=== PATIENT | female | born 2000 | race Caucasian/White ===

== ENCOUNTER → 2021-04-27 | Outpatient (CLI) | payer SELFPAY | PROVIDERS: Referring Provider Internal Medicine; Visit Provider Internal Medicine | DX: Z23 Encounter for immunization (principal) | CPT/HCPCS: 90471; 90686 ==

== ENCOUNTER → 2021-06-08 08:09 | Outpatient (CLI) | payer OTHER, SELFPAY ==
[2021-06-08] MEDS: COVID-19 VACC #3, MRNA(MOD) 50 MCG/0.25 ML VIAL IM (08:19)
== END ==
PROVIDERS: Visit Provider Internal Medicine
DX: Z23 Encounter for immunization (principal)
CPT/HCPCS: 0013A; 91301

== ENCOUNTER 2022-08-19 14:46 | Emergency (ER) | payer OTHER, SELFPAY ==
[2022-08-19 14:57] VITALS: BP 131/94; PULSE 112; RESP 18; TEMP 36.7; O2SAT 99; BMI 21.9
[2022-08-19 15:53] LABS: Add Manual Diff / Slide Review NO; Basophils Absolute Auto 0 /uL (0-100); Basophils Percent Auto 0.2 % (0-2); Eosinophils Absolute Auto 0 /uL (0-450); Hematocrit 41.8 % (36-46); Hemoglobin 14.3 g/dL (12.0-16.0); Lymphocytes Absolute Auto 1400 /uL (1100-4500); Lymphocytes Percent Auto 14.5 % (25-40); Mean Corpuscular HGB Conc 34.3 % (30-36); Mean Corpuscular Hemoglobin 30.8 PG (26-34); Monocytes Absolute Auto 700 /uL (0-900); Monocytes Percent Auto 7.1 % (3-14); Neutrophils Absolute Auto 7400 /uL (1500-7000); Neutrophils Percent Auto 78.2 % (50-75); Platelet Count 269 X10^3/uL (150-400); Red Blood Cell Count 4.65 X10^6/uL (4.0-5.2); Red Cell Distribution Width 12.2 % (11.6-14.8); White Blood Cell Count 9.5 X10^3/uL (4.5-11.0)
[2022-08-19 15:59] LABS: Acetaminophen < 10 ug/mL (10-30); Alanine Aminotransferase 16 IU/L (<35); Albumin 4.8 g/dL (3.5-5.0); Albumin Globulin Ratio 1.4 (1.0-2.8); Alkaline Phosphatase 68 U/L (38-126); Aspartate Aminotransferase 27 IU/L (14-36); BUN Creatinine Ratio 20.3 (6-22); Bilirubin Total 0.6 mg/dL (0.2-1.3); Blood Urea Nitrogen 13 mg/dL (7-17); Calcium 9.2 mg/dL (8.4-10.2); Carbon Dioxide 27 mmol/L (22-32); Chloride 101 mmol/L (98-107); Estimated Glomerular Filt Rate > 60 mL/min (>60); Ethanol (ETOH) < 10 mg/dL; Globulin 3.4 g/dL (1.7-4.1); Glucose 97 mg/dL (70-100); HEMOLYSIS < 15 (0-50); Potassium 3.9 mmol/L (3.4-5.1); Salicylate < 1.0 mg/dL (<20); Sodium 140 mmol/L (137-145); Total Protein 8.2 g/dL (6.3-8.2)
[2022-08-19 16:18] LABS: Free T4, Direct Thyroxine 1.37 ng/dL (0.78-2.19)
[2022-08-19 16:31] LABS: Thyroid Stimulating Hormone 0.943 uIU/mL (0.47-4.68)
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
--- NOTE | 2022-08-19 16:53 | PC.NURSE ---
Triage completed by this RN. Entered inadvertantly under other RN. Story deferred to primary RN due to continuity of care and privacy.
[2022-08-19 17:13] LABS: UR Morphine/Opiate cutoff 300 Negative (Negative); Ur Creatinine Normal (Normal); Ur Specific Gravity Normal (Normal); Urine Amphetamines Negative (Negative); Urine Barbiturates Negative (Negative); Urine Benzodiazepines Negative (Negative); Urine Cocaine Negative (Negative); Urine MDMA Negative (Negative); Urine Methadone Negative (Negative); Urine Methamphetamines Negative (Negative); Urine Oxycodone Negative (Negative); Urine Phencyclidine Negative (Negative); Urine Tetrahydrocannabinol Positive (Negative); Urine Tricyclic Antidepressant Negative (Negative); Urine pH Normal (Normal)
[2022-08-19 17:18] LABS: Bacteria Urine Few (2-10); RBC Urine 1-5/HPF (0-5/HPF); WBC Urine 5-10/HPF (0-5/HPF)
[2022-08-19 17:19] LABS: Culture Indicated Urine Specimen Cultured
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
== END 2022-08-19 18:18 | disposition home or self-care (01) ==
PROVIDERS: Emergency Provider Emergency Medicine
DX: F41.9 Anxiety disorder, unspecified (principal)
CPT/HCPCS: 36415; 80053; 80305; 80320; 80329; 81003; 81015; 81025; 84439; 84443; 85025; 87086; 99284; G0480

== ENCOUNTER 2022-08-23 09:03 | Emergency (ER) | payer OTHER, SELFPAY ==
[2022-08-23 09:05] VITALS: BP 130/88; PULSE 84; RESP 19; TEMP 37.1; O2SAT 100
[2022-08-23] MEDS: LORazepam 0.5 MG TABLET 1 MG PO (09:30)
--- NOTE | 2022-08-23 09:31 | PC.NURSE ---
pt's (they are and live in different residences) brought pt in to er. reports she is just very paranoid, she is seeing messages in the tv and on social media. her sister contacted me because [facility] and left all her belongings and asked a stranger for a ride home. her mom contacted me because a stranger called her and said she (patient) was running around in street calling out for help. today he reports she called him crying for help and he said he needed to check in at work first, that was at 7 am and he was with her by 0800 am and she said shed been needing help for hours reports pt was recently at [facility] 07/24 and sent to [facility] but left [facility], she reported to him that they didnt treat here well and were changing her nametags and other things. tearful at triage. Gerald Leandra [phone] will return at 1100 to speak with biomedical engineer, he is running home now to check on dogs.
--- NOTE | 2022-08-23 09:41 | ED_ITS ---
HPI - General Adult General Chief complaint: Psychiatric Symptoms Stated complaint: mental distress Time Seen by Provider: 08/23/22 09:15 Source: patient Mode of arrival: Ambulatory Limitations: no limitations History of Present Illness HPI narrative: Patient is a 22-year-old female. Approximately 1 month ago spent 2-1/2 days had [facility]. She stated that she left against medical advice. The reasons were as that she stated that she would asked for a female doctor and they did not have 1 but that is all that she mentioned about this. They did not discharge her with any medications. She is on trazodone and hydroxyzine to help with sleep. She is here voluntarily. Over the past 24 hours she is had some significant issues. She is very overwhelmed with life events. Last evening they [place] car and phone [place]. She was eventually located. She then was walking down the street asking for a ride to come to the emergency department. She states that ?I just do not know what to do? expressed the nursing staff that she was not suicidal. There is no signs of trauma. Related Data Previous Rx's Medication Instructions Recorded trazodone 50 mg tablet 25 mg PO .qhs PRN insomnia #7 tabs 08/19/22 Allergies Allergy/AdvReac Type Severity Reaction Status Date / Time No Known Drug Allergies Allergy Verified 08/23/22 09:44 Review of Systems Review of Systems ROS Unobtainable: All systems reviewed & are unremarkable except as noted in HPI and below Patient History Social History Smoking Status: Never smoker Smoking Status: Never smoker Substance Use Type: does not use Exam Initial Vital Signs Initial Vital Signs: Vital Signs Temperature 98.8 F 08/23/22 09:05 Pulse Rate 84 08/23/22 09:05 Respiratory Rate 19 08/23/22 09:05 Blood Pressure 130/88 08/23/22 09:05 Pulse Oximetry 100 08/23/22 09:05 Oxygen Delivery Method 08/23/22 09:05 HENMT Head: normal to inspection and normocephalic Resp Effort & Inspection: normal respiratory effort Cardio Rate: regular rate Skin General: no rashes or lesions noted Neuro General: patient alert, patient awake and moves all extremities Gait: normal gait Psych Other: Patient is obviously anxious and is crying. Is tangential and short with her answers. She is not aggressive. Denies suicidal ideation. Course Orders Ordered: ED Orders 08/23/22 09:24 Ictotest Urine Stat Urinalysis and Microscopic Stat Urine Culture Stat 08/23/22 09:45 Consult to MOBILE MANAGER - Insurance Underwriting Assistant Stat 08/23/22 09:48 COVID19 -Nasal RAPID/Pre-Proc Stat 08/23/22 09:58 Acetaminophen Stat Complete Blood Count AUTO DIFF Stat Comprehensive Metabolic Panel Stat Ethanol (ETOH) Stat Salicylate Stat Thyroid Stimulating Hormone Stat 08/23/22 13:50 Test Urine Stat Urinalysis and Microscopic Stat Urine Drug Screen, Rapid Stat Discontinued Medications Acetaminophen (Acetaminophen 325 Mg Tablet) 650 mg PO NOW ONE Stop: 08/23/22 10:35 Last Admin: 08/23/22 10:37 Dose: 650 mg Documented By: QUIN Lorazepam (Lorazepam 0.5 Mg Tablet) 1 mg PO NOW ONE Stop: 08/23/22 09:16 Last Admin: 08/23/22 09:30 Dose: 1 mg Documented By: QUIN Vital Signs Vital signs: Vital Signs - 8 hr 08/23/22 14:55 Pulse Rate 88 Blood Pressure 119/75 Pulse Oximetry 100 Oxygen Delivery Method Room Air Medical Decision Making Medical Records Medical records reviewed: Yes I reviewed the patient's medical records. Lab Data Lab results reviewed: Yes I reviewed the patient's lab results. 08/23/22 09:58 08/23/22 09:58 Labs: Lab Results 08/23/22 08/23/22 08/23/22 Range/Units 09:24 09:24 09:48 WBC (4.5-11.0) X10^3/uL RBC (4.0-5.2) X10^6/uL Hgb (12.0-16.0) g/dL Hct (36-46) % MCV (80-100) fL MCH (26-34) PG MCHC (30-36) % RDW (11.6-14.8) % Plt Count (150-400) X10^3/uL Neut % (Auto) (50-75) % Lymph % (Auto) (25-40) % [place] % (Auto) (3-14) % Eos % (Auto) (2-4) % Baso % (Auto) (0-2) % Neut # (Auto) (2656-5188) /uL Lymph # (Auto) (2142-1852) /uL [place] # (Auto) (0-900) /uL Eos # (Auto) (0-450) /uL Baso # (Auto) (0-100) /uL Sodium (137-145) mmol/L Potassium (3.4-5.1) mmol/L Chloride (98-107) mmol/L Carbon Dioxide (22-32) mmol/L BUN (7-17) mg/dL Creatinine (0.52-1.04) mg/dL Estimated GFR (>60) mL/min BUN/Creatinine Ratio (6-22) Glucose (70-100) mg/dL Calcium (8.4-10.2) mg/dL Total Bilirubin (0.2-1.3) mg/dL AST (14-36) IU/L ALT (<35) IU/L Alkaline Phosphatase (38-126) U/L Total Protein (6.3-8.2) g/dL Albumin (3.5-5.0) g/dL Globulin (1.7-4.1) g/dL Albumin/Globulin Ratio (1.0-2.8) TSH (0.47-4.68) uIU/mL Urine Color Yellow Urine Appearance Sl cloudy Urine pH 5.5 (4.5-8.0) Ur Specific [place] >=1.030 H (1.000-1.035) Urine Protein Trace H (Negative) Urine Glucose (UA) Negative (Negative) g/dL Urine Ketones 2+ H (NEGATIVE) Urine Occult Blood Trace-intact (Negative) Urine Nitrate Negative (Negative) Urine Bilirubin 1+ H (NEGATIVE) Ur Bilirubin Confirm Negative (Negative) Urine Urobilinogen 0.2 (0.2) E.U./dL Ur Leukocyte Esterase Trace H (NEGATIVE) Urine RBC 1-5/hpf (0-5/HPF) Urine WBC 1-5/hpf (0-5/HPF) Ur Squamous Epith Cells 10-30 /hpf H (0-5/HPF) Urine Bacteria Moderate (10-30) H (None) Ur Culture Indicated? Specimen cultured Urine Test (Negative) Salicylates (<20) mg/dL U Opiates 300ng/mL cut (Negative) Ur Oxycodone Screen (Negative) Urine Methadone Screen (Negative) Acetaminophen (10-30) ug/mL Ur Barbiturates Screen (Negative) U Tricyclic Antidepress (Negative) Ur Phencyclidine Scrn (Negative) Ur Amphetamines Screen (Negative) U Methamphetamines Scrn (Negative) Ur MDMA Scrn (Ecstasy) (Negative) U Benzodiazepines Scrn (Negative) Urine Cocaine Screen (Negative) U Marijuana (THC) Screen (Negative) Ethyl Alcohol ( - 10) mg/dL SARS-CoV-2 (PCR) Negative (Negative) 08/23/22 08/23/22 08/23/22 Range/Units 09:58 09:58 09:58 WBC 8.1 (4.5-11.0) X10^3/uL RBC 4.54 (4.0-5.2) X10^6/uL Hgb 14.1 (12.0-16.0) g/dL Hct 40.5 (36-46) % MCV 89.2 (80-100) fL MCH 31.2 (26-34) PG MCHC 34.9 (30-36) % RDW 12.3 (11.6-14.8) % Plt Count 248 (150-400) X10^3/uL Neut % (Auto) 66.6 (50-75) % Lymph % (Auto) 20.6 L (25-40) % [place] % (Auto) 12.7 (3-14) % Eos % (Auto) 0.0 L (2-4) % Baso % (Auto) 0.1 (0-2) % Neut # (Auto) 5400 (7167-0142) /uL Lymph # (Auto) 1700 (0941-3621) /uL [place] # (Auto) 1000 H (0-900) /uL Eos # (Auto) 0 (0-450) /uL Baso # (Auto) 0 (0-100) /uL Sodium 140 (137-145) mmol/L Potassium 3.5 (3.4-5.1) mmol/L Chloride 99 (98-107) mmol/L Carbon Dioxide 25 (22-32) mmol/L BUN 18 H (7-17) mg/dL Creatinine 0.69 (0.52-1.04) mg/dL Estimated GFR > 60 (>60) mL/min BUN/Creatinine Ratio 26.1 H (6-22) Glucose 77 (70-100) mg/dL Calcium 9.4 (8.4-10.2) mg/dL Total Bilirubin 1.2 (0.2-1.3) mg/dL AST 31 (14-36) IU/L ALT 20 (<35) IU/L Alkaline Phosphatase 78 (38-126) U/L Total Protein 8.5 H (6.3-8.2) g/dL Albumin 4.9 (3.5-5.0) g/dL Globulin 3.6 (1.7-4.1) g/dL Albumin/Globulin Ratio 1.4 (1.0-2.8) TSH 0.930 (0.47-4.68) uIU/mL Urine Color Urine Appearance Urine pH (4.5-8.0) Ur Specific [place] (1.000-1.035) Urine Protein (Negative) Urine Glucose (UA) (Negative) g/dL Urine Ketones (NEGATIVE) Urine Occult Blood (Negative) Urine Nitrate (Negative) Urine Bilirubin (NEGATIVE) Ur Bilirubin Confirm (Negative) Urine Urobilinogen (0.2) E.U./dL Ur Leukocyte Esterase (NEGATIVE) Urine RBC (0-5/HPF) Urine WBC (0-5/HPF) Ur Squamous Epith Cells (0-5/HPF) Urine Bacteria (None) Ur Culture Indicated? Urine Test (Negative) Salicylates (<20) mg/dL U Opiates 300ng/mL cut (Negative) Ur Oxycodone Screen (Negative) Urine Methadone Screen (Negative) Acetaminophen < 10 (10-30) ug/mL Ur Barbiturates Screen (Negative) U Tricyclic Antidepress (Negative) Ur Phencyclidine Scrn (Negative) Ur Amphetamines Screen (Negative) U Methamphetamines Scrn (Negative) Ur MDMA Scrn (Ecstasy) (Negative) U Benzodiazepines Scrn (Negative) Urine Cocaine Screen (Negative) U Marijuana (THC) Screen (Negative) Ethyl Alcohol < 10 ( - 10) mg/dL SARS-CoV-2 (PCR) (Negative) 08/23/22 08/23/22 08/23/22 Range/Units 09:58 13:50 13:50 WBC (4.5-11.0) X10^3/uL RBC (4.0-5.2) X10^6/uL Hgb (12.0-16.0) g/dL Hct (36-46) % MCV (80-100) fL MCH (26-34) PG MCHC (30-36) % RDW (11.6-14.8) % Plt Count (150-400) X10^3/uL Neut % (Auto) (50-75) % Lymph % (Auto) (25-40) % [place] % (Auto) (3-14) % Eos % (Auto) (2-4) % Baso % (Auto) (0-2) % Neut # (Auto) (2035-9863) /uL Lymph # (Auto) (9085-2399) /uL [place] # (Auto) (0-900) /uL Eos # (Auto) (0-450) /uL Baso # (Auto) (0-100) /uL Sodium (137-145) mmol/L Potassium (3.4-5.1) mmol/L Chloride (98-107) mmol/L Carbon Dioxide (22-32) mmol/L BUN (7-17) mg/dL Creatinine (0.52-1.04) mg/dL Estimated GFR (>60) mL/min BUN/Creatinine Ratio (6-22) Glucose (70-100) mg/dL Calcium (8.4-10.2) mg/dL Total Bilirubin (0.2-1.3) mg/dL AST (14-36) IU/L ALT (<35) IU/L Alkaline Phosphatase (38-126) U/L Total Protein (6.3-8.2) g/dL Albumin (3.5-5.0) g/dL Globulin (1.7-4.1) g/dL Albumin/Globulin Ratio (1.0-2.8) TSH (0.47-4.68) uIU/mL Urine Color Yellow Urine Appearance Clear Urine pH 6.0 (4.5-8.0) Ur Specific [place] <=1.005 (1.000-1.035) Urine Protein Negative (Negative) Urine Glucose (UA) Negative (Negative) g/dL Urine Ketones Trace H (NEGATIVE) Urine Occult Blood Trace-intact (Negative) Urine Nitrate Negative (Negative) Urine Bilirubin Negative (NEGATIVE) Ur Bilirubin Confirm (Negative) Urine Urobilinogen 0.2 (0.2) E.U./dL Ur Leukocyte Esterase Negative (NEGATIVE) Urine RBC 1-5/hpf (0-5/HPF) Urine WBC None seen (0-5/HPF) Ur Squamous Epith Cells (0-5/HPF) Urine Bacteria None seen (None) Ur Culture Indicated? Cult not indicated Urine Test Negative (Negative) Salicylates < 1.0 (<20) mg/dL U Opiates 300ng/mL cut (Negative) Ur Oxycodone Screen (Negative) Urine Methadone Screen (Negative) Acetaminophen (10-30) ug/mL Ur Barbiturates Screen (Negative) U Tricyclic Antidepress (Negative) Ur Phencyclidine Scrn (Negative) Ur Amphetamines Screen (Negative) U Methamphetamines Scrn (Negative) Ur MDMA Scrn (Ecstasy) (Negative) U Benzodiazepines Scrn (Negative) Urine Cocaine Screen (Negative) U Marijuana (THC) Screen (Negative) Ethyl Alcohol ( - 10) mg/dL SARS-CoV-2 (PCR) (Negative) 08/23/22 Range/Units 13:50 WBC (4.5-11.0) X10^3/uL RBC (4.0-5.2) X10^6/uL Hgb (12.0-16.0) g/dL Hct (36-46) % MCV (80-100) fL MCH (26-34) PG MCHC (30-36) % RDW (11.6-14.8) % Plt Count (150-400) X10^3/uL Neut % (Auto) (50-75) % Lymph % (Auto) (25-40) % [place] % (Auto) (3-14) % Eos % (Auto) (2-4) % Baso % (Auto) (0-2) % Neut # (Auto) (6115-0175) /uL Lymph # (Auto) (1022-5366) /uL [place] # (Auto) (0-900) /uL Eos # (Auto) (0-450) /uL Baso # (Auto) (0-100) /uL Sodium (137-145) mmol/L Potassium (3.4-5.1) mmol/L Chloride (98-107) mmol/L Carbon Dioxide (22-32) mmol/L BUN (7-17) mg/dL Creatinine (0.52-1.04) mg/dL Estimated GFR (>60) mL/min BUN/Creatinine Ratio (6-22) Glucose (70-100) mg/dL Calcium (8.4-10.2) mg/dL Total Bilirubin (0.2-1.3) mg/dL AST (14-36) IU/L ALT (<35) IU/L Alkaline Phosphatase (38-126) U/L Total Protein (6.3-8.2) g/dL Albumin (3.5-5.0) g/dL Globulin (1.7-4.1) g/dL Albumin/Globulin Ratio (1.0-2.8) TSH (0.47-4.68) uIU/mL Urine Color Urine Appearance Urine pH (4.5-8.0) Ur Specific [place] (1.000-1.035) Urine Protein (Negative) Urine Glucose (UA) (Negative) g/dL Urine Ketones (NEGATIVE) Urine Occult Blood (Negative) Urine Nitrate (Negative) Urine Bilirubin (NEGATIVE) Ur Bilirubin Confirm (Negative) Urine Urobilinogen (0.2) E.U./dL Ur Leukocyte Esterase (NEGATIVE) Urine RBC (0-5/HPF) Urine WBC (0-5/HPF) Ur Squamous Epith Cells (0-5/HPF) Urine Bacteria (None) Ur Culture Indicated? Urine Test (Negative) Salicylates (<20) mg/dL U Opiates 300ng/mL cut Negative (Negative) Ur Oxycodone Screen Negative (Negative) Urine Methadone Screen Negative (Negative) Acetaminophen (10-30) ug/mL Ur Barbiturates Screen Negative (Negative) U Tricyclic Antidepress Negative (Negative) Ur Phencyclidine Scrn Negative (Negative) Ur Amphetamines Screen Negative (Negative) U Methamphetamines Scrn Negative (Negative) Ur MDMA Scrn (Ecstasy) Negative (Negative) U Benzodiazepines Scrn Negative (Negative) Urine Cocaine Screen Negative (Negative) U Marijuana (THC) Screen Negative (Negative) Ethyl Alcohol ( - 10) mg/dL SARS-CoV-2 (PCR) (Negative) Point of Care Testing Test Results Negative Urine Dip Bedside Urine Glucose Negative Bedside Urine Bilirubin + 1 Bedside Urine Ketone + 15 Urine Specific [place] 1.030 Bedside Urine Occult Blood +/- Bedside Urine pH 6.0 Bedside Urine Protein - Negative Bedside Urine Urobilinogen - Negative Bedside Urine Nitrite - Negative Bedside Urine Leukocytes - Negative Esterase Point of care testing: Point of Care Testing Test Results Negative Urine Dip Bedside Urine Glucose Negative Bedside Urine Bilirubin + 1 Bedside Urine Ketone + 15 Urine Specific [place] 1.030 Bedside Urine Occult Blood +/- Bedside Urine pH 6.0 Bedside Urine Protein - Negative Bedside Urine Urobilinogen - Negative Bedside Urine Nitrite - Negative Bedside Urine Leukocytes - Negative Esterase MDM Narrative Medical decision making narrative: Patient is medically cleared. Upon arrival she was very anxious and was very tangential with answering questions but after Ativan she stated that she felt better and she was much easier to speak with. She was evaluated by social work. We had long discussions with the patient regarding options to include voluntary admission, involuntary admission for grave disability or discharge home. Patient stated that she does not want to be admitted to the hospital. She is not suicidal. Not homicidal. Has a GCS of 15. Not clinically intoxicated. In my opinion does have capacity to make decisions. She did recently have a voluntary admission to the hospital but left against medical advice. States she does not want to go back to mental health facility. We discussed our concerns about her safety at home and the events of the past 24 hours. She expressed understanding of this. We were eventually able to set up a plan that was acceptable to social work, myself and the patient. She has a friend who is going to stay with the patient over the weekend. The patient does have an appointment with her mental health provider on Friday of next week. Patient stated that she felt safe going home with this friend. She understood return precautions. Expressed understanding and agreement. Discharge Plan Departure Patient Disposition: Home Clinical Impression: Anxiety Activity Restrictions/Additional Instructions: I do recommend that you take all of your medications as directed. Keep your scheduled appointment with your mental health provider on Friday. You should be receiving a call from the [facility] tomorrow. Return to the emergency department for any new or worsening symptoms Prescriptions: No Action trazodone 50 mg tablet 25 mg PO .qhs PRN (Reason: insomnia) Qty: 7 0RF Referrals: Miscellaneous,DoctorMD [Primary Care Provider] - Stand Alone Forms: Patient Portal/API
[2022-08-23 09:44] LABS: Appearance Urine UA SL CLOUDY; Bilirubin Urine UA 1+ (NEGATIVE); Color Urine UA YELLOW; Glucose Urine UA NEGATIVE (Negative); Ketones Urine UA 2+ (NEGATIVE); Leukocyte Esterase Urine UA TRACE (NEGATIVE); Nitrite Urine UA NEGATIVE (Negative); Occult Blood Urine UA TRACE-INTACT (Negative); Protein Urine UA TRACE (Negative); Specific Gravity Urine UA >=1.030 (1.000-1.035); Urobilinogen Urine UA 0.2 E.U./dL (0.2); pH Urine UA 5.5 (4.5-8.0)
[2022-08-23 09:45] LABS: Bacteria Urine Moderate (10-30); Culture Indicated Urine Specimen Cultured; Ictotest Urine Negative (Negative); RBC Urine 1-5/HPF (0-5/HPF); Squamous Epithelial Cell Urine 10-30 /HPF (0-5/HPF); WBC Urine 1-5/HPF (0-5/HPF)
[2022-08-23 10:11] LABS: COVID19 -Nasal RAPID Negative (Negative)
[2022-08-23 10:12] LABS: Basophils Absolute Auto 0 /uL (0-100); Basophils Percent Auto 0.1 % (0-2); Eosinophils Absolute Auto 0 /uL (0-450); Hemoglobin 14.1 g/dL (12.0-16.0); Lymphocytes Absolute Auto 1700 /uL (1100-4500); Monocytes Absolute Auto 1000 /uL (0-900); Neutrophils Absolute Auto 5400 /uL (1500-7000); White Blood Cell Count 8.1 X10^3/uL (4.5-11.0)
[2022-08-23 10:14] LABS: Add Manual Diff / Slide Review NO; Hematocrit 40.5 % (36-46); Lymphocytes Percent Auto 20.6 % (25-40); Mean Corpuscular HGB Conc 34.9 % (30-36); Mean Corpuscular Hemoglobin 31.2 PG (26-34); Mean Corpuscular Volume 89.2 fL (80-100); Monocytes Percent Auto 12.7 % (3-14); Neutrophils Percent Auto 66.6 % (50-75); Platelet Count 248 X10^3/uL (150-400); Red Blood Cell Count 4.54 X10^6/uL (4.0-5.2); Red Cell Distribution Width 12.3 % (11.6-14.8)
[2022-08-23 10:21] LABS: Acetaminophen < 10 ug/mL (10-30); Alanine Aminotransferase 20 IU/L (<35); Albumin 4.9 g/dL (3.5-5.0); Albumin Globulin Ratio 1.4 (1.0-2.8); Alkaline Phosphatase 78 U/L (38-126); Aspartate Aminotransferase 31 IU/L (14-36); BUN Creatinine Ratio 26.1 (6-22); Bilirubin Total 1.2 mg/dL (0.2-1.3); Blood Urea Nitrogen 18 mg/dL (7-17); Calcium 9.4 mg/dL (8.4-10.2); Carbon Dioxide 25 mmol/L (22-32); Chloride 99 mmol/L (98-107); Estimated Glomerular Filt Rate > 60 mL/min (>60); Ethanol (ETOH) < 10 mg/dL; Globulin 3.6 g/dL (1.7-4.1); Glucose 77 mg/dL (70-100); HEMOLYSIS < 15 (0-50); Potassium 3.5 mmol/L (3.4-5.1); Sodium 140 mmol/L (137-145); Total Protein 8.5 g/dL (6.3-8.2)
[2022-08-23 10:25] LABS: Salicylate < 1.0 mg/dL (<20)
[2022-08-23] MEDS: ACETAMINOPHEN 325 MG TABLET 650 MG PO (10:37)
[2022-08-23 14:04] LABS: Appearance Urine UA CLEAR; Bilirubin Urine UA NEGATIVE (NEGATIVE); Color Urine UA YELLOW; Glucose Urine UA NEGATIVE (Negative); Ketones Urine UA TRACE (NEGATIVE); Leukocyte Esterase Urine UA NEGATIVE (NEGATIVE); Nitrite Urine UA NEGATIVE (Negative); Occult Blood Urine UA TRACE-INTACT (Negative); Protein Urine UA NEGATIVE (Negative); Specific Gravity Urine UA <=1.005 (1.000-1.035); Urobilinogen Urine UA 0.2 E.U./dL (0.2)
[2022-08-23 14:07] LABS: Pregnancy Test Urine Negative (Negative); UR Morphine/Opiate cutoff 300 Negative (Negative); Ur Creatinine Normal (Normal); Ur Specific Gravity Normal (Normal); Urine Amphetamines Negative (Negative); Urine Barbiturates Negative (Negative); Urine Benzodiazepines Negative (Negative); Urine Cocaine Negative (Negative); Urine MDMA Negative (Negative); Urine Methadone Negative (Negative); Urine Methamphetamines Negative (Negative); Urine Oxycodone Negative (Negative); Urine Phencyclidine Negative (Negative); Urine Tetrahydrocannabinol Negative (Negative); Urine Tricyclic Antidepressant Negative (Negative); Urine pH Normal (Normal)
[2022-08-23 14:09] LABS: Bacteria Urine None Seen; Culture Indicated Urine Cult Not Indicated; RBC Urine 1-5/HPF (0-5/HPF); WBC Urine None Seen (0-5/HPF)
[2022-08-23 14:55] VITALS: BP 119/75; PULSE 88; O2SAT 100
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
== END 2022-08-23 14:59 | disposition home or self-care (01) ==
PROVIDERS: Emergency Provider Emergency Medicine
DX: F41.9 Anxiety disorder, unspecified (principal); Z20.822 Contact with and (suspected) exposure to COVID-19
CPT/HCPCS: 36415; 80053; 80305; 80320; 80329; 81001; 81003; 81025; 84443; 85025; 87086; 87635; 99284; C9803; G0480

== ENCOUNTER → 2023-04-30 15:50 | Outpatient (CLI) | payer OTHER, SELFPAY | PROVIDERS: Referring Provider Family Medicine; Visit Provider Family Medicine | DX: Z23 Encounter for immunization (principal) | CPT/HCPCS: 90471; 90686 ==

== ENCOUNTER 2023-07-18 18:11 | Emergency (ER) | payer OTHER, SELFPAY ==
[2023-07-18 18:27] VITALS: BP 135/94; PULSE 105; RESP 18; TEMP 36.7; O2SAT 99; BMI 25.8
--- NOTE | 2023-07-18 18:36 | ED.SKABFB ---
HPI - Skin/Abscess/Foreign Bdy <Katerin Sanderson PA-C - Last Filed: 07/18/23 20:54> General Chief complaint: Skin/Abscess/Foreign Body Stated complaint: facial swelling, infected zit Time Seen by Provider: 07/18/23 18:36 Source: patient Mode of arrival: Family Vehicle Limitations: no limitations History of Present Illness HPI narrative: Generally healthy 23-year-old female presents with concern for possible infected acne/abscess on her left forehead. Patient states that she had a zit a couple weeks ago that became bothersome and was swelling and tender but then a couple days ago she said that it became more swollen and started throbbing and became more red appearing. This morning she found it had opened some and there was some clear looking fluid coming from it in small amounts. She states she has been taking ibuprofen for the pain yesterday and today and then this morning when she woke up she noticed that there was some mild swelling around her eyes which she associates with the infection on her forehead. She says her friends who saw her today states that she looks different as if her face is swollen compared to normal. She endorsed feeling a little bit nauseous this morning but she believes this is because she was really anxious about the size of this spot on her forehead and the fact that it could be spreading. She otherwise denies having fevers chills nausea vomiting or any other symptoms. She states she has never had a skin infection like this or similar problem with acne. She denies any concern for stating that she is on control and does not believe she could be . Related Data Previous Rx's Medication Instructions Recorded trazodone 50 mg tablet 25 mg (1/2 x 50 mg) PO .qhs PRN 08/19/22 insomnia #7 tabs doxycycline hyclate 100 mg capsule 100 mg PO DAILY abscess 10 days 07/18/23 #20 caps Allergies Allergy/AdvReac Type Severity Reaction Status Date / Time No Known Drug Allergies Allergy Verified 07/18/23 18:31 Review of Systems <Katerin Sanderson PA-C - Last Filed: 07/18/23 20:54> Review of Systems Narrative: See HPI Patient History <Katerin Sanderson PA-C - Last Filed: 07/18/23 20:54> Social History Smoking Status: Never smoker Smoking Status: Never smoker alcohol intake frequency: holidays/special occasions only Substance Use Type: does not use Exam <Katerin Sanderson PA-C - Last Filed: 07/18/23 20:54> Narrative Exam Narrative: GENERAL: [23] year old patient appears stated age. Well-developed patient, in mild distress, nontoxic appearing. HEAD: Atraumatic. Normocephalic. Very mild generalized subtle facial swelling/edema notable in the periorbital region and upper buccal region bilaterally equal. See skin EYES: Pupils equal round and reactive. Extraocular motions intact. No scleral icterus. No injection or drainage. ENT: Nose without bleeding, purulent drainage. Airway patent. NECK: Trachea midline. Non tender CARDIOVASCULAR: Slightly rapid Regular rate and rhythm without murmurs, gallops, or rubs, heart rate 104. RESPIRATORY: Clear to auscultation. Breath sounds equal bilaterally. No wheezes, rales, or rhonchi. GASTROINTESTINAL: Abdomen nondistended. EXTREMITIES: No edema or joint tenderness. NEURO: AOx3. SKIN: There is an approximately 1 cm in diameter roughly annular raised lesion (4mm high) with an open center on the patient's left anterior forehead. The edges of the wound are erythematous and tender to touch. There is no fluctuance, on obtaining a culture swab there is small amount of clearish to yellow green drainage present. No other rash or erythema of visible areas Initial Vital Signs Initial Vital Signs: Vital Signs Temperature 98.1 F 07/18/23 18:27 Pulse Rate 105 H 07/18/23 18:27 Respiratory Rate 18 07/18/23 18:27 Blood Pressure 135/94 H 07/18/23 18:27 Pulse Oximetry 99 07/18/23 18:27 Oxygen Delivery Method Room Air 07/18/23 18:27 <Holden Goncalves DO - Last Filed: 07/18/23 21:16> Initial Vital Signs Initial Vital Signs: Vital Signs Temperature 98.1 F 07/18/23 18:27 Pulse Rate 105 H 07/18/23 18:27 Respiratory Rate 18 07/18/23 18:27 Blood Pressure 135/94 H 07/18/23 18:27 Pulse Oximetry 99 07/18/23 18:27 Oxygen Delivery Method Room Air 07/18/23 18:27 Course <Katerin Sanderson PA-C - Last Filed: 07/18/23 20:54> Orders Ordered: ED Orders 07/18/23 18:43 Wound Culture and Gram Stain Stat Discontinued Medications Doxycycline Hyclate (Doxycycline Hyclate 100 Mg Tablet) 100 mg PO NOW ONE Stop: 07/18/23 18:45 Last Admin: 07/18/23 19:02 Dose: 100 mg Documented By: AMV Vital Signs Vital signs: Vital Signs - 8 hr 07/18/23 18:27 Temperature 98.1 F Pulse Rate 105 H Respiratory Rate 18 Blood Pressure 135/94 H Pulse Oximetry 99 Oxygen Delivery Method Room Air <Holden Goncalves DO - Last Filed: 07/18/23 21:16> Orders Ordered: ED Orders 07/18/23 18:43 Wound Culture and Gram Stain Stat Discontinued Medications Doxycycline Hyclate (Doxycycline Hyclate 100 Mg Tablet) 100 mg PO NOW ONE Stop: 07/18/23 18:45 Last Admin: 07/18/23 19:02 Dose: 100 mg Documented By: AMV Vital Signs Vital signs: Vital Signs - 8 hr 07/18/23 18:27 Temperature 98.1 F Pulse Rate 105 H Respiratory Rate 18 Blood Pressure 135/94 H Pulse Oximetry 99 Oxygen Delivery Method Room Air MDM - Skin/Abscess/Foreign Bdy <Katerin Sanderson PA-C - Last Filed: 07/18/23 20:54> Differential Diagnosis Differential diagnosis: Likely abscess of skin or subcutaneous tissue Medical Records Attestation: I reviewed the patient's medical records. Lab Data Attestation: I reviewed the patient's lab results. Treatment and disposition Shared decision making:: Shared decision-making was used in determining plan for evaluation, antibiotics and outpatient follow-up versus return to ED. 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 Exam today is consistent with an abscess, is slightly indurated but without fluctuance, open and draining somewhat on its own. Discussed options with the patient and based on exam, location do not feel that I and D is advisable or warranted at this time. Patient is slightly tachycardic however denies any recent fevers or other concerning symptoms that would suggest sepsis. Does endorse some anxiety associated with her symptoms which may explain her tachycardia. We discuss and she understands that if she does develop fevers or persistent or worsening symptoms or new symptoms of concern she will seek re-evaluation immediately as we are not doing blood labs today or evaluating for generalized infection. Patient denies any chance of . She states she is using control and takes regular tests which have been negative. Due to the appearance of the wound, duration of her infection, recent worsening and some concern for MRSA, prescribed doxycycline with 1st dose administered today in the emergency department. Patient has no history of similar skin infection and wound culture is obtained for further evaluation. Return precautions provided, follow-up plan discussed, all questions answered. Discharge Plan Departure Patient Disposition: Home Clinical Impression: Abscess of skin or subcutaneous tissue Qualifiers: Site of cutaneous abscess: face Qualified Code(s): L02.01 - Cutaneous abscess of face Activity Restrictions/Additional Instructions: *You have been diagnosed with [abscess] *What to do: *Please continue to take your regular medications as directed. [ 1] New medication prescriptions sent to your pharmacy: [Doxycycline] [ ] New medication written as a paper prescription [ ] No new medications given *Please follow up with your primary care provider in 2-3 days, call for an appointment. Let them know you were seen in the Emergency Department and that we ask that you be seen in follow up. We will electronically transmit a record of today's note if your PCP is in our system. You definitely have an infection at the site of the previous acne/blemish on your forehead. It is good that this has been draining some on its own. It is okay to use warm clean compresses on this multiple times a day if you are comfortable with this. You can take Tylenol and ibuprofen for pain, we gave you a 1st dose of doxycycline today in the emergency department and I would like you to continue taking this medication as prescribed. If you do have high or persistent fevers despite the antibiotic, if you have worsening symptoms such as nausea vomiting generalized fatigue weakness or are concerned that you are worsening please do not hesitate to be re-evaluated. *If you do not have a primary care provider please contact the [facility] Resource line at [phone]. They will ask some questions about your medical history and help get you set up with a doctor in the community. *Return to Emergency Department if you should have any new, worsening or concerning symptoms, such as [fever greater than 101 F, shaking chills, worsening pain, persistent vomiting or other bothersome symptoms] Prescriptions: New doxycycline hyclate 100 mg capsule 100 mg PO DAILY 10 Days Qty: 20 0RF No Action trazodone 50 mg tablet 25 mg PO .qhs PRN (Reason: insomnia) Qty: 7 0RF Referrals: Miscellaneous,Doctor, MD [Primary Care Provider] - Stand Alone Forms: Patient Portal/API ED Sign-out <Holden Goncalves, - Last Filed: 07/18/23 21:16> Cosign ED Attending Cosignature Attestation: Dr Goncalevs Co-Sign Statement: I was available for consultation during this patient's emergency department visit. This chart is signed by myself for administrative purposes only. I did not have direct contact with this patient during this visit. They were seen independently by the [facility].
--- NOTE | 2023-07-18 18:52 | PC.NURSE ---
Pt reports a pimple on her L side forehead that has gotten worse and draining over the past few days. Her face including her eyes have now become swollen.
[2023-07-18] MEDS: DOXYCYCLINE HYCLATE 100 MG TABLET PO (19:02)
== END 2023-07-18 19:05 | disposition home or self-care (01) ==
PROVIDERS: Emergency Provider Student in an Organized Health Care Education/Training Program
DX: L02.01 Cutaneous abscess of face (principal)
CPT/HCPCS: 87070; 87075; 87077; 87147; 87186; 87205; 99283

== ENCOUNTER → 2024-06-04 | Outpatient (CLI) | payer OTHER, SELFPAY | PROVIDERS: Referring Provider Internal Medicine; Visit Provider Internal Medicine | DX: Z23 Encounter for immunization (principal) | CPT/HCPCS: 90471; 90656 ==

== ENCOUNTER → 2024-09-02 07:04 | Outpatient (CLI) | payer OTHER, SELFPAY ==
[2024-09-02 07:38] LABS: Add Manual Diff / Slide Review NO; Basophils Absolute Auto 0 /uL (0-100); Basophils Percent Auto 0.2 % (0-2); Eosinophils Absolute Auto 0 /uL (0-450); Eosinophils Percent Auto 0.2 % (2-4); Hematocrit 40.9 % (36-46); Lymphocytes Absolute Auto 2500 /uL (1100-4500); Mean Corpuscular HGB Conc 34.2 % (30-36); Mean Corpuscular Hemoglobin 28.7 PG (26-34); Mean Corpuscular Volume 84.1 fL (80-100); Monocytes Absolute Auto 800 /uL (0-900); Monocytes Percent Auto 7.4 % (3-14); Neutrophils Absolute Auto 7500 /uL (1500-7000); Neutrophils Percent Auto 69.2 % (50-75); Platelet Count 355 X10^3/uL (150-400); Red Blood Cell Count 4.86 X10^6/uL (4.0-5.2); White Blood Cell Count 10.8 X10^3/uL (4.5-11.0)
[2024-09-02 07:46] LABS: Hemoglobin A1C% w Est Avg Glu 4.8 % (4.0-6.0)
[2024-09-02 08:00] LABS: Iron 56 ug/dL (37-170)
[2024-09-02 08:02] LABS: Alanine Aminotransferase 35 IU/L (<35); Albumin 4.5 g/dL (3.5-5.0); Albumin Globulin Ratio 1.6 (1.0-2.8); Alkaline Phosphatase 107 U/L (38-126); Aspartate Aminotransferase 39 IU/L (14-36); BUN Creatinine Ratio 11.8 (6-22); Bilirubin Total 0.6 mg/dL (0.2-1.3); Blood Urea Nitrogen 8 mg/dL (7-17); Calcium 9.4 mg/dL (8.4-10.2); Carbon Dioxide 20 mmol/L (22-32); Chloride 106 mmol/L (98-107); Cholesterol 192 mg/dL (140-199); Estimated Glomerular Filt Rate > 60 mL/min (>60); Globulin 2.9 g/dL (1.7-4.1); Glucose 96 mg/dL (70-100); HDL Cholesterol 50 mg/dL (40-60); HEMOLYSIS < 15 (0-50); LDL Cholesterol Calculated 110 mg/dL (<100); Potassium 4.2 mmol/L (3.4-5.1); Sodium 135 mmol/L (137-145); Total Protein 7.4 g/dL (6.3-8.2); Triglycerides 161 mg/dL (35-150)
[2024-09-02 08:10] LABS: Percent Iron Saturation 15 % (15-50); Total Iron Binding Capacity 377 ug/dL (265-497)
[2024-09-02 08:17] LABS: Free T4, Direct Thyroxine 0.97 ng/dL (0.78-2.19); T4 Total Thyroxine 7.54 ug/dL (5.5-11.0)
[2024-09-02 08:30] LABS: Thyroid Stimulating Hormone 1.57 uIU/mL (0.47-4.68)
[2024-09-02 08:37] LABS: Ferritin 12 ng/mL (6-137)
[2024-09-02 09:06] LABS: Vitamin B12 438 pg/mL (239-931)
== END ==
PROVIDERS: Referring Provider Nurse Practitioner Family; Visit Provider Nurse Practitioner Family
DX: F33.3 Major depressive disorder, recurrent, severe with psychotic symptoms (principal)
CPT/HCPCS: 36415; 80053; 80061; 82306; 82607; 82728; 82746; 83036; 83540; 83550; 84436; 84439; 84443; 85025

== ENCOUNTER → 2024-11-24 10:04 | Outpatient (CLI) | payer OTHER, SELFPAY ==
[2024-11-24 10:51] LABS: COVID-19 CEPHEID 4-PLEX PCR Negative (Negative); Influenza A - CEPHEID Flu A NEGATIVE (NEGATIVE); Influenza B - CEPHEID Flu B NEGATIVE (NEGATIVE); Respiratory Syncytial Virus Negative (Negative)
== END ==
LOC: LAB 10:05
PROVIDERS: Visit Provider Physician Assistant
DX: R50.9 Fever, unspecified (principal); R11.10 Vomiting, unspecified; R05.9 Cough, unspecified
CPT/HCPCS: 0241U

== ENCOUNTER 2024-12-05 21:44 | Emergency (ER) | payer OTHER, SELFPAY ==
[2024-12-05 21:53] VITALS: BP 144/94; PULSE 102; RESP 20; TEMP 36.7; O2SAT 98; BMI 30.4
--- NOTE | 2024-12-05 22:18 | PC.NURSE ---
pt has been seen at the walk in clinic and has been taking sinus medication without relief, with vomiting this am, pt states white patches appeared on her throat today, and the sore throat has increased in severity, continues with nasal congestion
[2024-12-05 22:27] LABS: Strep Grp A by PCR Rapid Negative (Negative)
--- NOTE | 2024-12-05 22:36 | ED.URI ---
HPI - URI/Sore Throat General Chief Complaint: Upper Respiratory Symptoms Stated Complaint: Sore Throat 7days Time Seen by Provider: 12/05/24 22:35 Source: patient Mode of arrival: Ambulatory History of Present Illness HPI Narrative: Patient is a healthy 24-year-old female presenting to day with sore throat. She has had a upper respiratory like symptoms for about 1 week however today throat got significantly worse. She was still drinking fluids she continues to have mild cough no significant shortness of breath. Taking cough medicine but throat is what hurts today. Related Data Home Medications Medication Instructions Recorded Confirmed dextroamphetamine-amphetamine 20 20 mg PO DAILY 11/24/24 11/29/24 mg tablet (Adderall) hydroxyzine HCl 25 mg tablet 25 mg PO BID PRN 11/24/24 11/29/24 Previous Rx's Medication Instructions Recorded benzonatate 200 mg capsule 200 mg PO TID PRN cough #30 caps 11/24/24 guaifenesin 1,200 mg tablet, 1,200 mg PO Q12H #30 tabs 11/24/24 extended release 12 hr ondansetron 4 mg disintegrating 4 - 8 mg (1 - 2 x 4 mg) PO Q8H PRN 11/24/24 tablet nausea and vomiting #20 tabs fluticasone propionate 50 1 spray intranasal DAILY #16 grams 11/29/24 mcg/actuation nasal spray,suspension (Flonase Allergy Relief) amoxicillin 500 mg capsule 500 mg PO BID #14 caps 12/05/24 Allergies Allergy/AdvReac Type Severity Reaction Status Date / Time lactose AdvReac Severe Gastrointestinal Verified 11/29/24 09:12 Upset Patient History Medical History (Updated 12/05/24 @ 22:47 by Maria Isabel Márquez DO) Depression ADHD Surgical History (Updated 11/26/24 @ 16:50 by Isabel Burton MA) [place] teeth removed (09/18/18) Family History (Updated 11/26/24 @ 16:50 by Isabel Burton MA) Mother Age: 53 Hypertension Social History Smoking Status: Never smoker Smoking Status: Never smoker alcohol intake frequency: holidays/special occasions only Exam Initial Vital Signs Initial Vital Signs: Vital Signs Temperature 98.1 F 12/05/24 21:53 Pulse Rate 102 H 12/05/24 21:53 Respiratory Rate 20 12/05/24 21:53 Blood Pressure 144/94 H 12/05/24 21:53 Pulse Oximetry 98 12/05/24 21:53 Oxygen Delivery Method Room Air 12/05/24 21:53 GENERAL: Alert well-appearing 24-year-old and in no acute distress. HEENT: Head atraumatic,EOMI, pupils reactive, face symmetric, PHARYNX: Erythematous white exudate no uvula swelling or deviation airway is patent CARDIOVASCULAR: Regular rate and rhythm without murmurs, rubs or gallops. RESPIRATORY: Breath sounds equal bilaterally, no wheezes rales or rhonchi. EXTREMITIES: Normal range of motion, no clubbing or edema. Neurovascularly intact NEUROLOGICAL: Alert and oriented x4.Normal gait and speech. Cranial nerves II through XII grossly intact. SKIN: Warm, dry, no laceration, no petechiae, no rashes or lesions. Course Orders Ordered: ED Orders 12/05/24 21:54 Strep Grp A by PCR Rapid Stat Throat Culture Stat Discontinued Medications Amoxicillin (Amoxicillin 250 Mg Capsule) 500 mg PO NOW ONE Stop: 12/05/24 22:42 Last Admin: 12/05/24 22:57 Dose: 500 mg Documented By: GOMEZ Vital Signs Vital signs: Vital Signs - 8 hr 12/05/24 21:53 Temperature 98.1 F Pulse Rate 102 H Respiratory Rate 20 Blood Pressure 144/94 H Pulse Oximetry 98 Oxygen Delivery Method Room Air MDM - URI/Sore Throat Lab Data Labs: Lab Results 12/05/24 Range/Units 21:54 Group A Strep (PCR) Negative (Negative) [facility] Narrative Medical decision making narrative: Patient is a 24-year-old female presenting today with sore throat. He has had upper respiratory like symptoms on going for about 1 week. She appears to not feel well but is overall nontoxic vitals are stable. Breath sounds are clear. No evidence of peritonsillar abscess or retropharyngeal abscess. Airway is patent. Although it was quite erythematous with exudative spots. Strep is negative but due to clinical exam I will go ahead and treat. Discharge Plan Departure Patient Disposition: Home Clinical Impression: Pharyngitis Instructions: DI for Pharyngitis/Tonsillopharyngitis -- Adult Activity Restrictions/Additional Instructions: *You have been diagnosed with pharyngitis *What to do: Sorry you are sick with the I hope you feel better soon <3 *Continue to take medications as directed Amoxicillin 500 mg twice a day for 7 days *Follow up with your primary care provider in 2-3 days or call [phone] *Return to ER if you should have difficulty swallowing or any new, worsening or concerning symptoms Prescriptions: New amoxicillin 500 mg capsule 500 mg PO BID Qty: 14 0RF No Action benzonatate 200 mg capsule 200 mg PO TID PRN (Reason: cough) Qty: 30 0RF dextroamphetamine-amphetamine [Adderall] 20 mg tablet 20 mg PO DAILY guaifenesin 1,200 mg tablet extended release 12hr 1,200 mg PO Q12H Qty: 30 0RF hydroxyzine HCl 25 mg tablet 25 mg PO BID PRN ondansetron 4 mg tablet,disintegrating 4 - 8 mg PO Q8H PRN (Reason: nausea and vomiting) Qty: 20 0RF fluticasone propionate [Flonase Allergy Relief] 50 mcg/actuation spray,suspension 1 spray intranasal DAILY Qty: 16 0RF Rx Instructions: administer into each nostril Referrals: Gely Caro DO [Primary Care Provider] - Stand Alone Forms: Patient Portal/API/Survey
[2024-12-05] MEDS: AMOXICILLIN 250 MG CAPSULE 500 MG PO (22:57)
== END 2024-12-05 23:06 | disposition home or self-care (01) ==
PROVIDERS: Emergency Provider Emergency Medicine; PCP Family Medicine
DX: J02.9 Acute pharyngitis, unspecified (principal)
CPT/HCPCS: 87070; 87651; 99283